=== PATIENT | female | born 1945 | race Caucasian/White ===

== ENCOUNTER → 2017-04-01 | Outpatient (CLI) | payer MEDICARE ==
--- NOTE | 2017-04-04 12:20 | PCVCIMAG ---
APPROVED REPORT Study performed: 04/01/2017 13:13:04 EXAM: Comprehensive 2D, Doppler, and color-flow Echocardiogram Other Information Study Quality: Adequate Indications Abnormal ECG Dyspnea Chest Pain Junctional rhythm 2D Dimensions LVEF(%): 68.42 (>50%) IVSd: 11.32 (7-11mm) LVDd: 40.08 mm PWd: 9.27 (7-11mm) LVDs: 24.95 (25-40mm) Left Atrium: 41.97 (27-40mm) Aortic Root: 28.54 mm LV Single Plane 4CH: 61.36 % LV Single Plane 2CH: 61.64 %Pereira's LVEF: 61.50 % Biplane EF: 62.0 % Volumes Left Atrial Volume (Systole) Single Plane 4CH: 62.16 mLSingle Plane 2CH: 64.65 mL LA ESV Index: 30.00 mL/m2 Aortic Valve AoV Peak Bhavik.: 1.79 m/s AO Peak Gr.: 12.89 mmHgLVOT Max P.43 mmHg LVOT Max V: 1.05 m/s Mitral Valve E/A Ratio: 1.2 MV Decel. Time: 216.86 ms MV E Max Bhavik.: 0.86 m/s MV A Bhavik.: 0.69 m/s IVRT: 79.58 ms TDI E/Lateral E': 11.20E/Medial E': 10.50 Pulmonary Valve PV Peak Bhavik.: 1.21 m/sPV Peak Gr.: 5.83 mmHg Pulmonary Vein P Vein S: 0.72 m/sP Vein A: 0.32 m/s P Vein D: 0.54 m/sP Vein A Dur.: 147.6 msec P Vein S/D Ratio: 1.33 Tricuspid Valve TR Peak Bhavik.: 2.40 m/s TR Peak Gr.: 23.10 mmHg Left Ventricle The left ventricle is normal size. There is normal LV segmental wall motion. There is normal left ventricular wall thickness. Left ventricular systolic function is normal. The left ventricular ejection fraction is within the normal range. LVEF is 55-60%. The left ventricular diastolic function is normal. Right Ventricle The right ventricle is normal size. The right ventricular systolic function is normal. Atria The left atrium size is mildly dilated. The right atrium size is mildly dilated. Aortic Valve The aortic valve is normal in structure. No aortic regurgitation is present. There is no aortic valvular stenosis. Mitral Valve The mitral valve is normal in structure. Trace mitral regurgitation. No evidence of mitral valve stenosis. Tricuspid Valve The tricuspid valve is normal in structure. Trace tricuspid regurgitation with PAP of 30 mmHg. Pulmonic Valve The pulmonary valve is normal in structure. There is no pulmonic valvular regurgitation. Great Vessels The aortic root is normal in size. IVC is normal in size and collapses with >50% inspiration Pericardium There is no pericardial effusion. There is no pleural effusion. <Conclusion> The left ventricle is normal size. LVEF is 55-60%. The left atrium size is mildly dilated. The right atrium size is mildly dilated. The aortic valve is normal in structure. The mitral valve is normal in structure. Trace mitral regurgitation. The tricuspid valve is normal in structure. Trace tricuspid regurgitation with PAP of 30 mmHg. The pulmonary valve is normal in structure.
== END | disposition home or self-care (01) ==
LOC: PCVCIMAG 13:08
PROVIDERS: ATTEND Internal Medicine
DX: I08.1 Rheumatic disorders of both mitral and tricuspid valves (principal); R93.41 Abnormal radiologic findings on diagnostic imaging of renal pelvis, ureter, or bladder
CPT/HCPCS: 93306

== ENCOUNTER → 2017-05-05 | Outpatient (CLI) | payer MEDICARE ==
--- NOTE | 2017-05-05 11:44 | PCVCIMAG ---
EXAM: BILATERAL SUPERFICIAL VENOUS DUPLEX INDICATION: Leg pain and swelling. FINDINGS: Right leg: No thrombus in the common femoral, main femoral, or popliteal veins. These veins are compressible. Right Great Saphenous Vein: At the saphenofemoral junction the diameter is 7.5 mm, in the mid thigh it is 5.1 mm, and in the calf it is 5.0 mm. There is not significant venous insufficiency/reflux throughout. Venous insufficiency/reflux duration is 0.3 seconds. Right Small Saphenous Vein: At the saphenopopliteal junction the diameter is 3.3 mm, and in the calf it is 3.0 mm. There is not significant venous insufficiency/reflux throughout. Venous insufficiency/reflux duration is 0.2 seconds. There is a cranial extension present. Left leg: No thrombus in the common femoral, main femoral, or popliteal veins. These veins are compressible. Left Great Saphenous Vein: At the saphenofemoral junction the diameter is 6.3 mm, in the mid thigh it is 5.1 mm, and in the calf it is 6.1 mm. There is not significant venous insufficiency/reflux throughout. Venous insufficiency/reflux duration is 0.4 seconds. Left Small Saphenous Vein: At the saphenopopliteal junction the diameter is 3.7 mm, and in the calf it is 2.7 mm. There is not significant venous insufficiency/reflux throughout. Venous insufficiency/reflux duration is 0.3 seconds. There is a cranial extension present. IMPRESSION: Right Great Saphenous Vein: No significant venous insufficiency/reflux is present as noted above. Right Small Saphenous Vein: No significant venous insufficiency/reflux is present as noted above. Left Great Saphenous Vein: No significant venous insufficiency/reflux is present as noted above. Left Small Saphenous Vein: No significant venous insufficiency/reflux is present as noted above. LOC:[id number]
== END | disposition home or self-care (01) ==
LOC: PCVCIMAG 08:55
PROVIDERS: ATTEND Nuclear Medicine Nuclear Cardiology
DX: M79.661 Pain in right lower leg (principal); M79.662 Pain in left lower leg; E78.5 Hyperlipidemia, unspecified; I49.8 Other specified cardiac arrhythmias
CPT/HCPCS: 93970